=== PATIENT | female | born 1940 | race Caucasian/White ===

== ENCOUNTER → 2018-10-04 07:15 | Day surgery (SDC) | payer MEDICARE, OTHER ==
[~2018-10-04 07:15] MED LIST: Acetaminophen TAB* 325 MG PO PRN; Cyclopentolate 1% OPTH.SOL* 2 ML BTL ONE; Ketorolac 0.5% OPHTH (NF) 0.5 % 5 ML BTL ONE; Lidocaine 1% MPF ** 5 ML VIAL ONE; Lidocaine 2% w/ EPI 1:200,000* 20 ML SDV VIAL ONE; Midazolam* 1 MG/ML 2 ML VIAL (2 MG) ONE; Neomycin/Polymy/Dex OPTH.SUSP* MAXITROL 0.1% 5 ML ONE; Phenylephrine OPHTH SOL 2.5%* 2 ML ONE; Povidone Iodine 5% OPTH* 30 ML BTL ONE; Proparacaine 0.5% OPHTH.SOL* 15 ML BTL ONE; acetaZOLAMIDE TAB* 250 MG ONE; fentaNYL* 50 MCG/ML 2 ML VIAL (100 MCG VIAL) ONE
[2018-10-04 10:32] VITALS: BP 137/53
--- NOTE | 2018-10-04 10:39 | OP ---
OPERATIVE NOTE: DATE OF OPERATION: 10/04/18 DATE OF : 40 SURGEON: Tim Valdovinos M.D. PREOPERATIVE DIAGNOSIS: Cataract, left eye. POSTOPERATIVE DIAGNOSIS: Cataract, left eye. OPERATIVE PROCEDURE: Extracapsular cataract extraction with intraocular lens implant, left eye. PROCEDURE: The patient was brought to the operating room after being given 1/2% Alcaine with epineph rine drops in the preoperative area. The eye was prepped and draped in the usual sterile fashion. S terile drape and eyelid speculum were placed. Again, topical 1/2% Alcaine with epinephrine was given . A paracentesis incision was made at the 3 o'clock position with the No.75 blade. Clear cornea inc ision 2.2 x 2.2-mm was created at the 6 o'clock position starting at the anterior limbus using the 2. 2-mm keratome. The anterior chamber was irrigated with 0.4 mL of 1% non-preservative intracameral li docaine and filled with DisCoVisc. A capsulorrhexis was completed using the cystotome and the Utrata forceps. Hydrodissection was performed with balanced salt solution. The lens nucleus was removed wi th the Phacoemulsification handpiece without incident. Cortex was removed with the irrigation-aspira tion handpiece. The capsular bag was re-inflated using DisCoVisc and an SN6AT3 24.5 implant was inse rted with the shooter, oriented to the 60-degree meridian. Horizontal reference adair were made with the patient in the seated position in the preoperative area. All measurements were confirmed with O RA. The irrigation-aspiration handpiece was used to remove all residual DisCoVisc. The eye was refi lled with balanced salt solution and the wound checked and found to be watertight. Topical Maxitrol drops were given. [id number]/[facility] #: [id number]
== END | disposition home or self-care (01) ==
LOC: OREAST 07:15
PROVIDERS: ATTEND Specialist
DX: H25.12 Age-related nuclear cataract, left eye (principal); H35.3131 Nonexudative age-related macular degeneration, bilateral, early dry stage; H04.123 Dry eye syndrome of bilateral lacrimal glands; E55.9 Vitamin D deficiency, unspecified; Z85.820 Personal history of malignant melanoma of skin; Z85.828 Personal history of other malignant neoplasm of skin; M19.90 Unspecified osteoarthritis, unspecified site; Z85.3 Personal history of malignant neoplasm of breast
CPT/HCPCS: A9270-GY; J2250; J3010; V2787